=== PATIENT | male | born 1955 | race Two or more races ===

== ENCOUNTER 2019-03-31 15:46 | Inpatient (IN) | payer OTHER ==
[~2019-03-31] VITALS: Ht 175.3 cm; Wt 99.8 kg
[2019-04-09] MEDS ORDERED: OXYC1TAB9 PO (09:45)
== END 2019-04-09 11:21 | disposition home or self-care (01) | DRG 349 ==
LOC: O/R 04-08 06:48 → SURG 04-08 07:00
PROVIDERS: ADMIT Surgery
PROC: 3E0T3BZ Introduction of Anesthetic Agent into Peripheral Nerves and Plexi, Percutaneous Approach (ICD-10-PCS; 2019-04-08)
PROC: 0DBP7ZZ Excision of Rectum, Via Natural or Artificial Opening (ICD-10-PCS; principal; 2019-04-08 07:00)
DX: D12.8 Benign neoplasm of rectum (principal); I10 Essential (primary) hypertension

== ENCOUNTER 2019-04-05 07:33 | Outpatient (CLI) | payer OTHER | END 2019-04-05 07:56 | disposition home or self-care (01) | LOC: EKG 07:33 → LAB 07:33 → EKG 07:56 | DX: I10 Essential (primary) hypertension (principal) ==